=== PATIENT | female | born 1955 | race Caucasian/White ===

== ENCOUNTER → 2023-05-26 18:06 | Outpatient (REF) | payer MEDICARE, OTHER, SELFPAY ==
[2023-05-26 19:14] LABS: Urine Albumin Negative (Neg - Trace); Urine Bilirubin Negative (Negative); Urine Character Clear (Clear); Urine Color Straw; Urine Glucose Negative (Negative); Urine Ketone Negative (Negative); Urine Leukocyte Trace (Negative); Urine Nitrite Negative (Negative); Urine Occult Blood Trace (Negative); Urine Specific Gravity 1.005 (<1.030); Urine Urobilinogen Negative (Neg - 1+); Urine pH 6.5 (5.0-9.0)
[2023-05-26 19:25] LABS: Urine Red Blood Cell None Seen /HPF (0-2); Urine Squamous Cell 0-2 /LPF (Few)
== END ==
LOC: CLAB 18:06
PROVIDERS: ATTENDING PHYSICIAN Specialist
DX: N39.0 Urinary tract infection, site not specified (principal)
CPT/HCPCS: 81003; 81015; 87086

== ENCOUNTER → 2023-06-03 12:47 | Outpatient (REF) | payer MEDICARE, OTHER, SELFPAY | LOC: WDC 12:47 | PROVIDERS: ATTENDING PHYSICIAN Internal Medicine | DX: Z78.0 Asymptomatic menopausal state (principal); Z12.31 Encounter for screening mammogram for malignant neoplasm of breast | CPT/HCPCS: 36415; 77063; 77067; 77080 ==

== ENCOUNTER → 2023-08-20 08:31 | Outpatient (REF) | payer MEDICARE, OTHER, SELFPAY ==
[2023-08-20 09:36] LABS: Glycohemoglobin (HgbA1c) 6.4 % (4.0-5.6)
[2023-08-20 10:57] LABS: ALT (SGPT) 49 U/L (0-35); AST (SGOT) 45 U/L (14-36); Albumin 4.5 g/dl (3.5-5.0); Alkaline Phosphatase 77 U/L (38-126); Blood Urea Nitrogen 18 mg/dl (7-17); Calcium 9.8 mg/dl (8.4-10.2); Carbon Dioxide 23 mmol/L (22-30); Chloride 103 mmol/L (98-107); Glucose 154 mg/dl (70-99); HDL Cholesterol 48 mg/dl; LDL Cholesterol, Calculated 82 mg/dl; Potassium 3.6 mmol/L (3.5-5.1); Sodium 139 mmol/L (135-145); Total Bilirubin 1.1 mg/dl (0.2-1.3); Total Cholesterol 176 mg/dl (50-199); Total Protein 6.8 g/dl (6.3-8.2); Triglyceride 232 mg/dl (10-149); Very Low Density Lipoprotein 46 mg/dl (0-30); eGFR > 60.00
== END ==
LOC: REG 08:31
PROVIDERS: ATTENDING PHYSICIAN Internal Medicine
DX: R73.9 Hyperglycemia, unspecified (principal); K75.81 Nonalcoholic steatohepatitis (NASH); E78.00 Pure hypercholesterolemia, unspecified
CPT/HCPCS: 36415; 80053; 80061; 83036

== ENCOUNTER → 2023-12-26 08:41 | Outpatient (REF) | payer MEDICARE, OTHER, SELFPAY ==
[2023-12-26 09:24] LABS: % Basophils 0.5 % (0-2); % Eosinophils 1.6 % (0-6); % Immature Granulocytes 0.2 % (0-0.5); % Lymphocytes 28.3 % (20.5-51.1); % Monocytes 5.8 % (1.7-9.3); % Neutrophils 63.6 % (42.2-75.2); Absolute Eosinophils 0.1 10^3/uL (0-0.7); Absolute Lymphocytes 1.6 10^3/uL (1.2-3.4); Absolute Monocytes 0.3 10^3/uL (0.1-0.6); Absolute Neutrophils 3.6 10^3/uL (1.4-6.5); Hemoglobin 15.3 g/dL (12.0-16.0); Mean Corp Hgb Conc. 35.6 g/dL (33.0-37.0); Mean Corpuscular Hgb 30.9 pg (27.0-31.0); Mean Corpuscular Volume 86.9 fL (81.0-99.0); Nucleated Red Blood Cells % 0 %; Platelet Count 218 10^3/uL (130-400); Red Blood Cell Count 4.95 10^6/uL (4.20-5.40); Red Cell Dist. Width 12.4 % (11.5-14.5); White Blood Cell Count 5.7 10^3/uL (4.8-10.8)
[2023-12-26 09:42] LABS: Glycohemoglobin (HgbA1c) 6.2 % (4.0-5.6)
[2023-12-26 09:47] LABS: ALT (SGPT) 62 U/L (0-35); AST (SGOT) 49 U/L (14-36); Albumin 4.7 g/dl (3.5-5.0); Alkaline Phosphatase 78 U/L (38-126); Blood Urea Nitrogen 16 mg/dl (7-17); Calcium 9.8 mg/dl (8.4-10.2); Carbon Dioxide 20 mmol/L (22-30); Chloride 102 mmol/L (98-107); Glucose 137 mg/dl (70-99); HDL Cholesterol 52 mg/dl; LDL Cholesterol, Calculated 98 mg/dl; Potassium 3.7 mmol/L (3.5-5.1); Sodium 141 mmol/L (135-145); Total Cholesterol 192 mg/dl (50-199); Triglyceride 210 mg/dl (10-149); Very Low Density Lipoprotein 42 mg/dl (0-30); eGFR > 60.00
[2023-12-26 10:17] LABS: TSH Reflex To Free T4 2.33 uIU/ml (0.47-4.68)
== END ==
LOC: REG 08:41
PROVIDERS: ATTENDING PHYSICIAN Internal Medicine
DX: R73.9 Hyperglycemia, unspecified (principal); K75.81 Nonalcoholic steatohepatitis (NASH); I10 Essential (primary) hypertension; E78.00 Pure hypercholesterolemia, unspecified
CPT/HCPCS: 36415; 80053; 80061; 83036; 84443; 85025

== ENCOUNTER → 2024-06-02 07:52 | Outpatient (REF) | payer MEDICARE, OTHER, SELFPAY ==
[2024-06-02 09:26] LABS: Glycohemoglobin (HgbA1c) 6.8 % (4.0-5.6)
[2024-06-02 10:21] LABS: ALT (SGPT) 76 U/L (0-35); AST (SGOT) 46 U/L (14-36); Albumin 4.5 g/dl (3.5-5.0); Alkaline Phosphatase 80 U/L (38-126); Blood Urea Nitrogen 18 mg/dl (7-17); Calcium 9.7 mg/dl (8.4-10.2); Carbon Dioxide 26 mmol/L (22-30); Chloride 102 mmol/L (98-107); Glucose 169 mg/dl (70-99); HDL Cholesterol 48 mg/dl; LDL Cholesterol, Calculated 84 mg/dl; Sodium 138 mmol/L (135-145); Total Bilirubin 1.4 mg/dl (0.2-1.3); Total Cholesterol 185 mg/dl (50-199); Total Protein 7.1 g/dl (6.3-8.2); Triglyceride 267 mg/dl (10-149); Very Low Density Lipoprotein 53 mg/dl (0-30); eGFR > 60.00
== END ==
LOC: REG 07:52
PROVIDERS: ATTENDING PHYSICIAN Internal Medicine
DX: I10 Essential (primary) hypertension (principal); R73.9 Hyperglycemia, unspecified; E78.2 Mixed hyperlipidemia
CPT/HCPCS: 36415; 80053; 80061; 83036

== ENCOUNTER → 2024-06-09 10:44 | Outpatient (REF) | payer MEDICARE, OTHER, SELFPAY | LOC: WDC 10:44 | PROVIDERS: ATTENDING PHYSICIAN Internal Medicine | DX: Z12.31 Encounter for screening mammogram for malignant neoplasm of breast (principal) | CPT/HCPCS: 77063; 77067 ==

== ENCOUNTER → 2024-09-29 07:48 | Outpatient (REF) | payer MEDICARE, OTHER, SELFPAY ==
[2024-09-29 08:44] LABS: Hematocrit 42.0 % (37.0-47.0); Hemoglobin 14.4 g/dL (12.0-16.0); Mean Corp Hgb Conc. 34.3 g/dL (33.0-37.0); Mean Corpuscular Volume 88.1 fL (81.0-99.0); Nucleated Red Blood Cells % 0 %; Platelet Count 202 10^3/uL (130-400); Red Cell Dist. Width 12.2 % (11.5-14.5)
[2024-09-29 09:18] LABS: ALT (SGPT) 49 U/L (0-35); AST (SGOT) 35 U/L (14-36); Albumin 4.6 g/dl (3.5-5.0); Alkaline Phosphatase 67 U/L (38-126); Blood Urea Nitrogen 16 mg/dl (7-17); Calcium 9.5 mg/dl (8.4-10.2); Carbon Dioxide 24 mmol/L (22-30); Chloride 107 mmol/L (98-107); Glucose 147 mg/dl (70-99); HDL Cholesterol 47 mg/dl; LDL Cholesterol, Calculated 84 mg/dl; Potassium 4.1 mmol/L (3.5-5.1); Sodium 140 mmol/L (135-145); Total Protein 6.7 g/dl (6.3-8.2); Very Low Density Lipoprotein 42 mg/dl (0-30); eGFR > 60.00
[2024-09-29 10:07] LABS: Glycohemoglobin (HgbA1c) 6.3 % (4.0-5.6)
== END ==
LOC: REG 07:48
PROVIDERS: ATTENDING PHYSICIAN Internal Medicine
DX: R73.9 Hyperglycemia, unspecified (principal); I10 Essential (primary) hypertension; E78.2 Mixed hyperlipidemia
CPT/HCPCS: 36415; 80053; 80061; 83036; 84443; 85025

== ENCOUNTER → 2024-11-04 12:49 | Outpatient (REF) | payer MEDICARE, OTHER, SELFPAY | LOC: RCS 12:49 | PROVIDERS: ATTENDING PHYSICIAN Internal Medicine | DX: R53.83 Other fatigue (principal); R07.89 Other chest pain | CPT/HCPCS: 93017; 93350 ==

== ENCOUNTER → 2025-02-03 07:49 | Outpatient (REF) | payer MEDICARE, OTHER, SELFPAY ==
[2025-02-03 09:55] LABS: Glycohemoglobin (HgbA1c) 6.3 % (4.0-5.9)
[2025-02-03 11:59] LABS: ALT (SGPT) 47 U/L (0-35); AST (SGOT) 34 U/L (14-36); Albumin 4.4 g/dl (3.5-5.0); Alkaline Phosphatase 73 U/L (38-126); Blood Urea Nitrogen 19 mg/dl (7-17); Calcium 9.2 mg/dl (8.4-10.2); Carbon Dioxide 27 mmol/L (22-30); Chloride 104 mmol/L (98-107); Glucose 149 mg/dl (70-99); HDL Cholesterol 45 mg/dl; LDL Cholesterol, Calculated 86 mg/dl; Potassium 3.9 mmol/L (3.5-5.1); Sodium 138 mmol/L (135-145); Total Protein 6.7 g/dl (6.3-8.2); Very Low Density Lipoprotein 42 mg/dl (0-30); eGFR > 60.00
== END ==
LOC: REG 07:49
PROVIDERS: ATTENDING PHYSICIAN Internal Medicine
DX: R73.9 Hyperglycemia, unspecified (principal); I10 Essential (primary) hypertension; E78.2 Mixed hyperlipidemia
CPT/HCPCS: 36415; 80053; 80061; 83036

== ENCOUNTER → 2025-02-15 08:34 | Outpatient (REF) | payer MEDICARE, OTHER, SELFPAY | LOC: RAD 08:34 | PROVIDERS: ATTENDING PHYSICIAN Internal Medicine | DX: R06.09 Other forms of dyspnea (principal) | CPT/HCPCS: 71260; Q9967 ==

== ENCOUNTER → 2025-02-17 12:34 | Outpatient (REF) | payer MEDICARE, OTHER, SELFPAY | LOC: RSP 12:34 | PROVIDERS: ATTENDING PHYSICIAN Internal Medicine | DX: R06.09 Other forms of dyspnea (principal) | CPT/HCPCS: 88738; 94010; 94727; 94729 ==